=== PATIENT | female | born 1985 | race Caucasian/White ===

== ENCOUNTER 2017-10-31 12:45 | Emergency (ER) | payer OTHER ==
[~2017-10-31] VITALS: Ht 162.6 cm; Wt 86.2 kg
[2017-10-31] MEDS ORDERED: ADDERALL 5 MG TA5 M1 PO (12:50)
[2017-10-31] MEDS ORDERED: CELEXA40 MG PO (12:50)
[2017-10-31 13:09] LABS: ABSOLUTE BASOPHILS 0.1 thou/uL (0.0-0.2); ABSOLUTE EOSINOPHILS 0.1 thou/uL (0.0-0.7); ABSOLUTE LYMPHOCYTES 2.1 thou/uL (0.8-5.3); ABSOLUTE MONOCYTES 0.4 thou/uL (0.0-1.2); ABSOLUTE NEUTROPHILS 3.1 thou/uL (1.6-8.1); BASOPHILS 2.5 %; EOSINOPHILS 1.7 %; HEMATOCRIT 39.4 % (37.0-47.0); HEMOGLOBIN 13.5 gm/dL (12.0-15.0); MCH 31.8 pg (26.0-34.0); MCHC 34.2 g/dL (28.0-37.0); MONOCYTES 6.7 %; MPV 8.3 fl. (7.2-11.1); NUCLEATED RBCS 0 /100WBC; PLATELET COUNT* 262 thou/uL (150-400); POLYS 53.1 %; RBC 4.23 mil/uL (4.20-5.00); RDW-CV 11.8 % (10.5-14.5); WBC 5.8 thou/uL (4.0-11.0)
[2017-10-31 13:16] LABS: ANION GAP 7 mmol/L (7-16); BUN 8 mg/dL (7-18); CALCIUM 8.4 mg/dL (8.5-10.1); CHLORIDE 105 mmol/L (98-107); CO2 28 mmol/L (21-32); CREATININE 0.8 mg/dL (0.6-1.3); GLUCOSE 96 mg/dL (70-99); POTASSIUM 3.8 mmol/L (3.5-5.1); SODIUM 140 mmol/L (136-145)
[2017-10-31 13:19] LABS: APTT 25.9 Seconds (25.0-31.3); PROTIME 10.2 Seconds (9.20-11.50)
[2017-10-31 13:34] LABS: ALBUMIN 3.3 g/dL (3.4-5.0); ALKALINE PHOSPHATASE 68 U/L (46-116); CK-MB MASS < 0.5 ng/mL (<0.5-3.6); LIPASE 144 U/L (73-393); MAGNESIUM 1.8 mg/dL (1.8-2.4); NT-PRO BRAIN NAT PEPTIDE 65 pg/mL (<300); SGOT 21 U/L (15-37); SGPT 37 U/L (30-65); TOTAL BILIRUBIN 0.3 mg/dL (<0.1-1.0); TOTAL PROTEIN 6.6 g/dL (6.4-8.2); TROPONIN-I LEVEL <0.06 ng/mL (<0.06)
[2017-10-31 14:26] VITALS: BP 114/77
--- NOTE | 2017-11-01 18:03 | EKG ---
[place] [address] ELECTROCARDIOGRAM REPORT Name: RACHELLE MORAN Room: [facility]#: [id number] Admission: 10/31/17 Attend Phys: Discharge: 10/31/17 Date of : 87 Report #: [id number] THIS REPORT FOR: //name// [facility] ED Test Date: 2017-10-31 Test Time: 13:04:27 Pat Name: RACHELLE MORAN Department: Room: Gender: F Household Cook: CHAPINCITO : 1985 Requested By: Matthew Castro Order Number: [id number] MD: Brenton Tinoco Measurements Intervals [place] Rate: 89 P: 70 NV: 137 QRS: 90 QRSD: 105 T: 52 QT: 379 QTc: 462 Interpretive Statements Sinus rhythm Borderline right axis deviation Low voltage, extremity and precordial leads Baseline wander in lead(s) I,III,aVL No previous ECG available for comparison Electronically Signed On 11-01-2017 18:03:02 CDT by Brenton Tinoco [email or web address] <ELECTRONICALLY SIGNED> By: Brenton Tinoco MD, [facility] 11/01/17 1803 1304 130 Brenton Tinoco MD, [facility] /EPI
--- NOTE | 2017-11-01 18:03 | EKG ---
[place] [address] ELECTROCARDIOGRAM REPORT Name: RACHELLE MORAN Room: [facility]#: [id number] Admission: 10/31/17 Attend Phys: Discharge: 10/31/17 Date of : 87 Report #: [id number] THIS REPORT FOR: //name// [facility] ED Test Date: 2017-10-31 Test Time: 12:51:04 Pat Name: RACHELLE MORAN Department: Room: Gender: F Homoeopath: KORINA : 1985 Requested By: Matthew Castro Order Number: [id number] MD: Brenton Tinoco Measurements Intervals [place] Rate: 73 P: 41 IN: 136 QRS: 98 QRSD: 92 T: 74 QT: 382 QTc: 421 Interpretive Statements Sinus rhythm Borderline right axis deviation Low voltage, precordial leads Nonspecific T abnormalities, lateral leads Baseline wander in lead(s) I,II,III,aVR,aVL No previous ECG available for comparison Electronically Signed On 11-01-2017 18:02:54 CDT by Brenton Tinoco [email or web address] <ELECTRONICALLY SIGNED> By: Brenton Tinoco MD, [facility] 11/01/17 1802 1251 1251 Brenton Tinoco MD, [facility] /EPI
== END 2017-10-31 14:29 | disposition home or self-care (01) ==
LOC: M.ERS 12:45
PROVIDERS: Family Medicine
DX: R07.9 Chest pain, unspecified (principal); F32.9 Major depressive disorder, single episode, unspecified; F41.9 Anxiety disorder, unspecified

== ENCOUNTER 2017-11-25 22:52 | Emergency (ER) | payer OTHER ==
[~2017-11-25] VITALS: Ht 165.1 cm; Wt 85.7 kg
[~2017-11-25 22:52] MED LIST: ADDERALL 5 MG TA5 M1 PO; CELEXA40 MG PO
[2017-11-25] MEDS ORDERED: CLONAZEPAM 0.50.5 M1 (23:03)
[2017-11-25] MEDS ORDERED: KLONOPIN0.5 MG PO (23:39)
[2017-11-25 23:48] VITALS: BP 118/76
== END 2017-11-25 23:48 | disposition home or self-care (01) ==
LOC: M.ERS 22:52
DX: F41.0 Panic disorder [episodic paroxysmal anxiety] (principal); F32.9 Major depressive disorder, single episode, unspecified; F17.200 Nicotine dependence, unspecified, uncomplicated

== ENCOUNTER 2018-01-08 17:36 | Emergency (ER) | payer OTHER ==
[~2018-01-08] VITALS: Ht 165.1 cm; Wt 81.7 kg
[~2018-01-08 17:36] MED LIST changes: +CLONAZEPAM 0.50.5 M1; +KLONOPIN0.5 MG PO
[2018-01-08 17:58] LABS: URINE BILIRUBIN NEGATIVE (Negative); URINE BLOOD NEGATIVE (Negative); URINE CLARITY CLEAR; URINE COLOR YELLOW; URINE GLUCOSE-RANDOM NEGATIVE (Negative); URINE KETONES NEGATIVE (Negative); URINE LEUKOCYTES-REFLEX NEGATIVE (Negative); URINE NITRITE-REFLEX NEGATIVE (Negative); URINE PROTEIN NEGATIVE (Negative); URINE SPECIFIC GRAVITY 1.015 (1.005-1.030)
[2018-01-08 18:06] LABS: AMP/METHAMP Negative (Negative); BARBITURATES Negative (Negative); BENZODIAZEPINES POSITIVE (Negative); COCAINE Negative (Negative); METHADONE Negative (Negative); OPIATES Negative (Negative); PCP Negative (Negative); THC POSITIVE (Negative)
[2018-01-08 18:06] LABS: ABSOLUTE BASOPHILS 0.1 thou/uL (0.0-0.2); ABSOLUTE EOSINOPHILS 0.4 thou/uL (0.0-0.7); ABSOLUTE LYMPHOCYTES 3.3 thou/uL (0.8-5.3); ABSOLUTE MONOCYTES 0.4 thou/uL (0.0-1.2); ABSOLUTE NEUTROPHILS 4.6 thou/uL (1.6-8.1); BASOPHILS 0.9 %; EOSINOPHILS 4.6 %; HEMATOCRIT 40.6 % (37.0-47.0); HEMOGLOBIN 13.9 gm/dL (12.0-15.0); LYMPHOCYTES 37.3 %; MCH 31.8 pg (26.0-34.0); MCHC 34.2 g/dL (28.0-37.0); MCV 93.1 fL (80.0-100.0); MONOCYTES 4.6 %; MPV 8.1 fl. (7.2-11.1); NUCLEATED RBCS 0 /100WBC; PLATELET COUNT* 261 thou/uL (150-400); POLYS 52.6 %; RBC 4.36 mil/uL (4.20-5.00); RDW-CV 12.5 % (10.5-14.5); WBC 8.8 thou/uL (4.0-11.0)
[2018-01-08 18:14] LABS: CALCIUM 8.7 mg/dL (8.5-10.1); CREATININE 0.9 mg/dL (0.6-1.3); POTASSIUM 3.6 mmol/L (3.5-5.1)
[2018-01-08 18:18] LABS: ALBUMIN 3.6 g/dL (3.4-5.0); TOTAL BILIRUBIN 0.4 mg/dL (<0.1-1.0)
[2018-01-08] MEDS ORDERED: HYDROCODONE-AP1 EAC6 PO (19:04)
[2018-01-08] MEDS ORDERED: BENTYL 10 MG CA10 M1 PO (19:05)
[2018-01-08 19:19] VITALS: BP 129/78
== END 2018-01-08 19:20 | disposition home or self-care (01) ==
LOC: M.ERS 17:36
PROVIDERS: Physician Assistant
DX: N76.0 Acute vaginitis (principal); B96.89 Other specified bacterial agents as the cause of diseases classified elsewhere; R10.9 Unspecified abdominal pain; F32.9 Major depressive disorder, single episode, unspecified; F41.9 Anxiety disorder, unspecified

== ENCOUNTER 2018-07-19 18:51 | Emergency (ER) | payer OTHER ==
[~2018-07-19] VITALS: Ht 165.1 cm; Wt 86.2 kg
[~2018-07-19 18:51] MED LIST changes: +BENTYL 10 MG CA10 M1 PO; +HYDROCODONE-AP1 EAC6 PO
[2018-07-19] MEDS ORDERED: UCERIS9 MG PO (19:09)
[2018-07-19] MEDS ORDERED: CIPRO500 M1 PO (19:09)
[2018-07-19 19:17] LABS: URINE BILIRUBIN NEGATIVE (Negative); URINE BLOOD 1+ (Negative); URINE CLARITY CLEAR; URINE COLOR YELLOW; URINE GLUCOSE-RANDOM NEGATIVE (Negative); URINE KETONES NEGATIVE (Negative); URINE LEUKOCYTES-REFLEX NEGATIVE (Negative); URINE NITRITE-REFLEX NEGATIVE (Negative); URINE PROTEIN NEGATIVE (Negative); URINE SPECIFIC GRAVITY <= 1.005 (1.005-1.030); URINE UROBILINOGEN 0.2 E.U./dl (0.2-1.0)
[2018-07-19 19:21] LABS: ABSOLUTE BASOPHILS 0.1 thou/uL (0.0-0.2); ABSOLUTE EOSINOPHILS 0.1 thou/uL (0.0-0.7); ABSOLUTE MONOCYTES 0.6 thou/uL (0.0-1.2); EOSINOPHILS 0.9 %; HEMATOCRIT 40.5 % (37.0-47.0); HEMOGLOBIN 13.7 gm/dL (12.0-15.0); LYMPHOCYTES 25.4 %; MCH 32.2 pg (26.0-34.0); MCHC 33.8 g/dL (28.0-37.0); MCV 95.3 fL (80.0-100.0); MONOCYTES 5.1 %; MPV 7.8 fl. (7.2-11.1); NUCLEATED RBCS 0 /100WBC; PLATELET COUNT* 269 thou/uL (150-400); POLYS 67.6 %; RBC 4.25 mil/uL (4.20-5.00); RDW-CV 12.3 % (10.5-14.5); WBC 11.9 thou/uL (4.0-11.0)
[2018-07-19 19:25] LABS: CASTS None Seen /LPF (None Seen); CRYSTALS None Seen /LPF (None Seen); MUCUS 0-3 Light strn/LPF (None Seen); SQUAMOUS 4-10 Moderate /LPF (0-3); URINE RBC 0-2 Rare /HPF (0-2); WBC CLUMPS Few (None Seen)
[2018-07-19 19:28] LABS: CALCIUM 8.4 mg/dL (8.5-10.1); CREATININE 1.2 mg/dL (0.6-1.3); POTASSIUM 3.2 mmol/L (3.5-5.1)
[2018-07-19 19:33] LABS: ALBUMIN 3.4 g/dL (3.4-5.0); TOTAL BILIRUBIN 0.2 mg/dL (<0.1-1.0); TOTAL PROTEIN 6.8 g/dL (6.4-8.2)
[2018-07-19] MEDS ORDERED: ZOFRAN ODT4 MG PO (20:45)
[2018-07-19] MEDS ORDERED: IBU600 MG PO (20:49)
[2018-07-19] MEDS ORDERED: NORCO 5-325 TA1 EAC1 PO (20:49)
[2018-07-19 22:20] VITALS: BP 121/69
[2018-07-20] MEDS ORDERED: PROBIOTIC1 EAC1 PO (17:48)
== END 2018-07-19 22:20 | disposition home or self-care (01) ==
LOC: M.ERS 18:51
PROVIDERS: Nurse Practitioner Family
DX: N12 Tubulo-interstitial nephritis, not specified as acute or chronic (principal); F41.9 Anxiety disorder, unspecified; F32.9 Major depressive disorder, single episode, unspecified

== ENCOUNTER 2018-07-20 14:44 | Inpatient (IN) | payer OTHER ==
[~2018-07-20] VITALS: Ht 165.1 cm; Wt 86.2 kg
[~2018-07-20 14:44] MED LIST changes: +CIPRO500 M1 PO; +IBU600 MG PO; +NORCO 5-325 TA1 EAC1 PO; +UCERIS9 MG PO; +ZOFRAN ODT4 MG PO
[2018-07-20 14:57] VITALS: BP 164/94
[2018-07-20 15:36] LABS: HEMATOCRIT 39.7 % (37.0-47.0); HEMOGLOBIN 13.5 gm/dL (12.0-15.0); MCH 32.5 pg (26.0-34.0); MCHC 33.9 g/dL (28.0-37.0); MCV 95.7 fL (80.0-100.0); MPV 8.4 fl. (7.2-11.1); NUCLEATED RBCS 0 /100WBC; PLATELET COUNT* 276 thou/uL (150-400); RBC 4.15 mil/uL (4.20-5.00); RDW-CV 12.3 % (10.5-14.5); WBC 10.1 thou/uL (4.0-11.0)
[2018-07-20 15:45] LABS: CALCIUM 8.4 mg/dL (8.5-10.1); POTASSIUM 3.4 mmol/L (3.5-5.1)
[2018-07-20 15:49] LABS: ALBUMIN 3.3 g/dL (3.4-5.0); TOTAL BILIRUBIN 0.3 mg/dL (<0.1-1.0); TOTAL PROTEIN 6.8 g/dL (6.4-8.2)
[2018-07-20 15:52] LABS: URINE BILIRUBIN NEGATIVE (Negative); URINE BLOOD NEGATIVE (Negative); URINE CLARITY CLEAR; URINE COLOR YELLOW; URINE GLUCOSE-RANDOM NEGATIVE (Negative); URINE KETONES NEGATIVE (Negative); URINE NITRITE-REFLEX NEGATIVE (Negative); URINE PROTEIN NEGATIVE (Negative); URINE UROBILINOGEN 0.2 E.U./dl (0.2-1.0)
[2018-07-20 15:54] LABS: URINE LEUKOCYTES-REFLEX 2+ (Negative)
[2018-07-20 16:01] LABS: ABSOLUTE LYMPHOCYTES 2.2 thou/uL (0.8-5.3); ABSOLUTE MONOCYTES 0.2 thou/uL (0.0-1.2); ABSOLUTE NEUTROPHILS 7.7 thou/uL (1.6-8.1); PLATELET ESTIMATE ADEQUATE
[2018-07-20 16:10] LABS: SQUAMOUS 4-10 Moderate /LPF (0-3); URINE WBC-REFLEX 0-5 Rare /HPF (0-5)
[2018-07-20 16:11] LABS: BACTERIA-REFLEX 1-9 Few /HPF (None Seen); CASTS None Seen /LPF (None Seen); CRYSTALS None Seen /LPF (None Seen); URINE RBC 0-2 Rare /HPF (0-2)
[2018-07-20 16:33] VITALS: BP 142/92
[2018-07-20] MEDS ORDERED: PROBIOTIC1 EAC1 PO (17:48)
[2018-07-20 18:21] LABS: AMP/METHAMP Negative (Negative); BARBITURATES Negative (Negative); BENZODIAZEPINES Negative (Negative); COCAINE Negative (Negative); METHADONE Negative (Negative); OPIATES POSITIVE (Negative); PCP Negative (Negative); THC Negative (Negative)
[2018-07-20 20:10] VITALS: BP 152/90
[2018-07-21] VITALS: BP 100/52
[2018-07-21 04:00] VITALS: BP 131/70
[2018-07-21 07:43] VITALS: BP 121/70
[2018-07-21 15:46] LABS: ABSOLUTE EOSINOPHILS 0.1 thou/uL (0.0-0.7); ABSOLUTE LYMPHOCYTES 2.7 thou/uL (0.8-5.3); ABSOLUTE MONOCYTES 0.3 thou/uL (0.0-1.2); ABSOLUTE NEUTROPHILS 3.4 thou/uL (1.6-8.1); BASOPHILS 0.2 %; EOSINOPHILS 1.6 %; HEMATOCRIT 34.9 % (37.0-47.0); HEMOGLOBIN 11.7 gm/dL (12.0-15.0); LYMPHOCYTES 40.6 %; MCH 32.4 pg (26.0-34.0); MCHC 33.6 g/dL (28.0-37.0); MCV 96.3 fL (80.0-100.0); MONOCYTES 4.9 %; MPV 8.6 fl. (7.2-11.1); NUCLEATED RBCS 0 /100WBC; PLATELET COUNT* 229 thou/uL (150-400); POLYS 52.7 %; RBC 3.62 mil/uL (4.20-5.00); RDW-CV 12.4 % (10.5-14.5); WBC 6.5 thou/uL (4.0-11.0)
[2018-07-21 15:47] VITALS: BP 109/69
[2018-07-21 16:01] LABS: CALCIUM 8.4 mg/dL (8.5-10.1); CREATININE 0.8 mg/dL (0.6-1.3); POTASSIUM 3.5 mmol/L (3.5-5.1)
[2018-07-21 20:30] VITALS: BP 138/85
[2018-07-22 01:30] VITALS: BP 128/70
--- NOTE | 2018-07-22 07:53 | CON ---
[address] [address] CONSULTATION Name: RACHELLE MORAN Room: [address] [facility]#: [id number] Admission: 07/20/18 Attend Phys: Moira Major MD Discharge: Date of : 87 Report #: [id number] THIS REPORT FOR: //name// CC: FAM physician/PCP Moira Major DATE OF SERVICE: 07/21/2018 ATTENDING PHYSICIAN: Dr. Major. REASON FOR EVALUATION: Pyelonephritis. HISTORY OF PRESENT ILLNESS: Chart reviewed, the patient examined. This is a 33-year-old woman without significant medical history, does have some anxiety, depression, apparently had developed a diarrheal illness, was confirmed to have C. diff positive PCR in her stool in 12/2017, had a fairly extended course of what appears to be oral vancomycin. 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 She subsequently developed a furuncle in the left inguinal area. This was cultured. She was told it was staphylococcus, although I have been unable to confirm that. She was started on ciprofloxacin, developed some nausea, emesis. She was evaluated initially as an outpatient then in the Emergency Room, was discharged only to be reevaluated 24 hours later, which was yesterday and was confirmed to have marked pyuria. CT imaging is consistent with pyelonephritis. She was empirically started on combination therapy with Cipro as well as ceftriaxone. She has not had recent diarrhea, it is more described as constipation. She is not encephalopathic. Does admit to bilateral lower quadrant as well as flank pains, although that has improved since admission. Denies any pulmonary related complaints. ALLERGIES: None known. MEDICATIONS: Include nicotine patch, citalopram, ondansetron, enoxaparin, ceftriaxone, clozapine, ciprofloxacin. PAST MEDICAL HISTORY: Above noted anxiety, depression, colitis, history of C. diff, tubal ligation. SOCIAL HISTORY: Smokes a pack a day, occasional ethanol, no illicit drug use. FAMILY HISTORY: Noncontributory. REVIEW OF SYSTEMS: Otherwise, unremarkable 10-point review of systems with exception of the above. PHYSICAL EXAMINATION: GENERAL: She is pleasant, alert, cooperative, appears to [place] [address] CONSULTATION Name: RACHELLE MORAN Room: [address] [place] [facility]#: [id number] Admission: 07/20/18 Attend Phys: Moira Major MD Discharge: Date of : 87 Report #: [id number] She is actually reasonably well nourished. VITAL SIGNS: Temperature 97.9, pulse 73, respirations 16, blood pressure is 121/70. SKIN: Warm, dry, no rashes. HEENT: Otherwise, unremarkable. Extraocular muscles intact. No oral lesions. NECK: Supple. LUNGS: Clear to auscultation. HEART: Regular. I do not appreciate any murmur. ABDOMEN: Soft, nontender, nondistended. There are no peritoneal signs. Really, no CVA tenderness. Left groin has an area of resolving inflammation, is mild at this point. There is no fluctuance, no evidence of a subcutaneous inflammatory mass. GENITOURINARY: Deferred. RECTAL: Deferred. LABORATORY DATA: Blood cultures sterile thus far. Drug screen was positive for opiates. Urinalysis, 16-25 white cells, few wbc's clumps, 10-30 bacteria. CBC: White count of 11.9, H and H 13.7 and 40.5, platelets of 269. CT abdomen and pelvis showed perinephric inflammation bilaterally, no findings of ureteral prominence or obstruction. No adenopathy. Electrolytes: Sodium 141, potassium 3.4, chloride 105, bicarbonate is 25, anion gap 11, BUN and creatinine 7 and 1.0, glucose of 114. Albumin of 3.3, total protein 6.8. LFTs unremarkable. Estimated GFR of 64. CBC: White count of 10.1, H and H 13.5 and 39.7, platelets of 276. ASSESSMENT: Pyelonephritis. Continue empiric antimicrobial therapy. Await culture results. At this point, she is not overtly toxic, although she is ill appearing with recent Clostridium difficile. We will add some oral vancomycin. We will obtain culture results from previous and see how she does clinically in the next 48-72 hours. It is not clear exactly what the colitis diagnosis is. She is on corticosteroids tapering dose, which may increase her risk for infectious complications. <ELECTRONICALLY SIGNED> By: Zach Dela Cruz MD 07/22/18 0753 1522 1926Zach Dela Cruz MD /rachele
[2018-07-22 08:48] VITALS: BP 125/73
[2018-07-22 10:59] LABS: HEMATOCRIT 33.2 % (37.0-47.0); HEMOGLOBIN 11.3 gm/dL (12.0-15.0); MCH 32.7 pg (26.0-34.0); MCHC 33.9 g/dL (28.0-37.0); MCV 96.4 fL (80.0-100.0); MPV 8.2 fl. (7.2-11.1); RBC 3.44 mil/uL (4.20-5.00); RDW-CV 12.1 % (10.5-14.5); WBC 7.6 thou/uL (4.0-11.0)
[2018-07-22 11:13] LABS: CALCIUM 8.4 mg/dL (8.5-10.1); CREATININE 0.8 mg/dL (0.6-1.3); POTASSIUM 3.6 mmol/L (3.5-5.1)
[2018-07-22 16:30] VITALS: BP 132/88
[2018-07-22 21:10] VITALS: BP 128/72
[2018-07-23 04:24] LABS: HEMATOCRIT 32.6 % (37.0-47.0); HEMOGLOBIN 11.2 gm/dL (12.0-15.0); MCHC 34.4 g/dL (28.0-37.0); MCV 95.7 fL (80.0-100.0); MPV 8.4 fl. (7.2-11.1); RBC 3.41 mil/uL (4.20-5.00); RDW-CV 12.1 % (10.5-14.5); WBC 7.4 thou/uL (4.0-11.0)
[2018-07-23 04:30] LABS: CALCIUM 7.9 mg/dL (8.5-10.1); CREATININE 0.8 mg/dL (0.6-1.3); POTASSIUM 3.5 mmol/L (3.5-5.1)
[2018-07-23 09:15] VITALS: BP 136/80
[2018-07-23] MEDS ORDERED: CEFDINIR300 MG PO (11:06)
[2018-07-23 11:07] VITALS: BP 128/72
[2018-07-23 13:50] VITALS: BP 128/72
== END 2018-07-23 11:25 | disposition home or self-care (01) | DRG 690 ==
LOC: M.ERS 14:44 → M.ORTHSURG 15:04 → M.TBA-ER 15:04 → M.ORTHSURG 16:04
PROVIDERS: Nurse Practitioner Family; ADMIT Family Medicine
DX: N10 Acute pyelonephritis (principal); F41.9 Anxiety disorder, unspecified; F32.9 Major depressive disorder, single episode, unspecified; F17.210 Nicotine dependence, cigarettes, uncomplicated; K52.839 Microscopic colitis, unspecified; N17.9 Acute kidney failure, unspecified; N18.9 Chronic kidney disease, unspecified; Z83.3 Family history of diabetes mellitus; Z79.899 Other long term (current) drug therapy

== ENCOUNTER 2018-08-10 18:55 | Emergency (ER) | payer OTHER ==
[~2018-08-10] VITALS: Ht 165.1 cm; Wt 86.2 kg
[~2018-08-10 18:55] MED LIST changes: +CEFDINIR300 MG PO; +PROBIOTIC1 EAC1 PO
[2018-08-10 19:25] LABS: HEMATOCRIT 39.8 % (37.0-47.0); HEMOGLOBIN 13.6 gm/dL (12.0-15.0); MCH 32.6 pg (26.0-34.0); MCHC 34.2 g/dL (28.0-37.0); MCV 95.3 fL (80.0-100.0); MPV 8.4 fl. (7.2-11.1); NUCLEATED RBCS 0 /100WBC; PLATELET COUNT* 281 thou/uL (150-400); RBC 4.18 mil/uL (4.20-5.00); WBC 8.6 thou/uL (4.0-11.0)
[2018-08-10 19:33] LABS: CALCIUM 8.7 mg/dL (8.5-10.1); CREATININE 0.9 mg/dL (0.6-1.3); POTASSIUM 3.6 mmol/L (3.5-5.1)
[2018-08-10 19:37] LABS: ALBUMIN 3.6 g/dL (3.4-5.0); TOTAL BILIRUBIN 0.2 mg/dL (<0.1-1.0); TOTAL PROTEIN 7.1 g/dL (6.4-8.2)
[2018-08-10 19:43] LABS: ABSOLUTE EOSINOPHILS 0.3 thou/uL (0.0-0.7); ABSOLUTE LYMPHOCYTES 2.3 thou/uL (0.8-5.3); ABSOLUTE MONOCYTES 0.3 thou/uL (0.0-1.2); ABSOLUTE NEUTROPHILS 5.7 thou/uL (1.6-8.1); PLATELET ESTIMATE ADEQUATE
[2018-08-10 19:55] LABS: URINE BILIRUBIN NEGATIVE (Negative); URINE BLOOD 1+ (Negative); URINE CLARITY CLEAR; URINE COLOR YELLOW; URINE GLUCOSE-RANDOM NEGATIVE (Negative); URINE KETONES NEGATIVE (Negative); URINE LEUKOCYTES-REFLEX NEGATIVE (Negative); URINE NITRITE-REFLEX NEGATIVE (Negative); URINE PROTEIN NEGATIVE (Negative); URINE UROBILINOGEN 0.2 E.U./dl (0.2-1.0)
[2018-08-10 20:08] LABS: BACTERIA-REFLEX 1-9 Few /HPF (None Seen); CASTS None Seen /LPF (None Seen); CRYSTALS None Seen /LPF (None Seen); SQUAMOUS 0-3 Few /LPF (0-3); URINE RBC None Seen /HPF (0-2); URINE WBC-REFLEX 0-5 Rare /HPF (0-5)
[2018-08-10] MEDS ORDERED: PHENAZOPYRIDIN200 M2 PO (21:01)
[2018-08-10] MEDS ORDERED: BACTRIM DS TAB1 EACH PO (21:01)
[2018-08-10] MEDS ORDERED: PHENERGAN 25 MG25 M1 PO (21:01)
[2018-08-10 21:13] VITALS: BP 120/63
== END 2018-08-10 21:13 | disposition home or self-care (01) ==
LOC: M.ERS 18:55
PROVIDERS: Physician Assistant
DX: R35.0 Frequency of micturition (principal); R19.7 Diarrhea, unspecified; I70.90 Unspecified atherosclerosis; F41.9 Anxiety disorder, unspecified; F32.9 Major depressive disorder, single episode, unspecified

== ENCOUNTER 2018-09-04 20:20 | Emergency (ER) | payer OTHER ==
[~2018-09-04] VITALS: Ht 165.1 cm; Wt 86.2 kg
[~2018-09-04 20:20] MED LIST changes: +BACTRIM DS TAB1 EACH PO; +PHENAZOPYRIDIN200 M2 PO; +PHENERGAN 25 MG25 M1 PO
[2018-09-04] MEDS ORDERED: ABILIFY MYCITE5 MG PO (20:28)
[2018-09-04] MEDS ORDERED: XANAX 0.5 MG0.5 M1 PO (20:28)
[2018-09-04 21:01] LABS: ABSOLUTE BASOPHILS 0.1 thou/uL (0.0-0.2); ABSOLUTE EOSINOPHILS 0.1 thou/uL (0.0-0.7); ABSOLUTE LYMPHOCYTES 2.6 thou/uL (0.8-5.3); ABSOLUTE MONOCYTES 0.3 thou/uL (0.0-1.2); ABSOLUTE NEUTROPHILS 3.8 thou/uL (1.6-8.1); BASOPHILS 1.4 %; EOSINOPHILS 1.4 %; HEMATOCRIT 37.5 % (37.0-47.0); LYMPHOCYTES 38.3 %; MCHC 34.8 g/dL (28.0-37.0); MCV 94.9 fL (80.0-100.0); MONOCYTES 3.9 %; MPV 7.7 fl. (7.2-11.1); NUCLEATED RBCS 0 /100WBC; PLATELET COUNT* 273 thou/uL (150-400); RBC 3.95 mil/uL (4.20-5.00); RDW-CV 12.2 % (10.5-14.5); WBC 6.9 thou/uL (4.0-11.0)
[2018-09-04 21:40] LABS: ANION GAP 10 mmol/L (7-16); BUN 7 mg/dL (7-18); CALCIUM 8.8 mg/dL (8.5-10.1); CHLORIDE 103 mmol/L (98-107); CO2 26 mmol/L (21-32); CREATININE 0.8 mg/dL (0.6-1.3); GLUCOSE 95 mg/dL (70-99); POTASSIUM 3.4 mmol/L (3.5-5.1); SODIUM 139 mmol/L (136-145)
[2018-09-04 21:46] LABS: URINE BILIRUBIN NEGATIVE (Negative); URINE BLOOD NEGATIVE (Negative); URINE CLARITY CLEAR; URINE COLOR YELLOW; URINE GLUCOSE-RANDOM NEGATIVE (Negative); URINE KETONES NEGATIVE (Negative); URINE NITRITE-REFLEX NEGATIVE (Negative); URINE PROTEIN NEGATIVE (Negative); URINE UROBILINOGEN 0.2 E.U./dl (0.2-1.0)
[2018-09-04 21:47] LABS: ALBUMIN 3.4 g/dL (3.4-5.0); ALKALINE PHOSPHATASE 77 U/L (46-116); LIPASE 150 U/L (73-393); SGOT 14 U/L (15-37); SGPT 23 U/L (30-65); TOTAL BILIRUBIN 0.2 mg/dL (<0.1-1.0); TROPONIN-I LEVEL <0.06 ng/mL (<0.06)
[2018-09-04 21:47] LABS: URINE LEUKOCYTES-REFLEX 2+ (Negative)
[2018-09-04 21:55] LABS: AMP/METHAMP Negative (Negative); BARBITURATES Negative (Negative); BENZODIAZEPINES Negative (Negative); COCAINE Negative (Negative); METHADONE Negative (Negative); OPIATES Negative (Negative); PCP Negative (Negative); THC Negative (Negative)
[2018-09-04 22:01] LABS: BACTERIA-REFLEX >30 Many /HPF (None Seen); CASTS None Seen /LPF (None Seen); CRYSTALS None Seen /LPF (None Seen); MUCUS 4-6 Moderate strn/LPF (None Seen); SQUAMOUS 0-3 Few /LPF (0-3); URINE RBC 3-10 Few /HPF (0-2); URINE WBC-REFLEX >25 Many /HPF (0-5); WBC CLUMPS Few (None Seen)
[2018-09-04] MEDS ORDERED: NABUMETONE 750750 M1 PO (22:10)
[2018-09-04] MEDS ORDERED: MEDROLDOSEPACK PO (22:10)
[2018-09-04] MEDS ORDERED: TRAMADOL 50 MG50 MG PO (22:10)
[2018-09-04 22:15] LABS: INFLUENZA A ANTIGEN None Detected (None Detect); INFLUENZA B ANTIGEN None Detected (None Detect)
[2018-09-04] MEDS ORDERED: VENTOLIN HFA 1818 GM INH (22:23)
[2018-09-04 22:42] VITALS: BP 148/88
--- NOTE | 2018-09-05 15:35 | EKG ---
[place] [address] ELECTROCARDIOGRAM REPORT Name: DEANRACHELLE Wall Room: [facility]#: [id number] Admission: 09/04/18 Attend Phys: Discharge: 09/04/18 Date of : 87 Report #: [id number] THIS REPORT FOR: //name// [facility] ED Test Date: 2018-09-04 Test Time: 20:28:06 Pat Name: RACHELLE MORAN Department: Room: Gender: F Cisco Network Architect: Wander NINO : 1985 Requested By: Karishma Johnson Order Number: [id number] MD: Brenton Tinoco Measurements Intervals [place] Rate: 114 P: 54 MD: 146 QRS: 94 QRSD: 91 T: 6 QT: 348 QTc: 480 Interpretive Statements Sinus tachycardia Borderline right axis deviation Low voltage, precordial leads Borderline prolonged QT interval Compared to ECG 10/31/2017 13:04:27 Sinus rate has increased Electronically Signed On 09-05-2018 15:34:47 BPM ANALYST by Brenton Tinoco [email or web address] <ELECTRONICALLY SIGNED> By: Brenton Tinoco MD, [facility] 09/05/18 1534 27 27 Brenton Tinoco MD, [facility] /EPI
== END 2018-09-04 22:43 | disposition home or self-care (01) ==
LOC: M.ERS 20:20
PROVIDERS: Nurse Practitioner Family
DX: J20.9 Acute bronchitis, unspecified (principal); M25.512 Pain in left shoulder; F41.9 Anxiety disorder, unspecified; F32.9 Major depressive disorder, single episode, unspecified

== ENCOUNTER 2018-09-25 23:56 | Emergency (ER) | payer OTHER ==
[~2018-09-25] VITALS: Ht 165.1 cm; Wt 86.2 kg
[~2018-09-25 23:56] MED LIST changes: +ABILIFY MYCITE5 MG PO; +MEDROLDOSEPACK PO; +NABUMETONE 750750 M1 PO; +TRAMADOL 50 MG50 MG PO; +VENTOLIN HFA 1818 GM INH; +XANAX 0.5 MG0.5 M1 PO
[2018-09-26 00:47] LABS: ABSOLUTE EOSINOPHILS 0.1 thou/uL (0.0-0.7); ABSOLUTE LYMPHOCYTES 2.7 thou/uL (0.8-5.3); ABSOLUTE MONOCYTES 0.5 thou/uL (0.0-1.2); ABSOLUTE NEUTROPHILS 4.1 thou/uL (1.6-8.1); BASOPHILS 0.6 %; EOSINOPHILS 1.6 %; HEMATOCRIT 39.6 % (37.0-47.0); HEMOGLOBIN 13.7 gm/dL (12.0-15.0); LYMPHOCYTES 35.8 %; MCH 33.2 pg (26.0-34.0); MCHC 34.5 g/dL (28.0-37.0); MONOCYTES 6.2 %; MPV 7.9 fl. (7.2-11.1); NUCLEATED RBCS 0 /100WBC; PLATELET COUNT* 296 thou/uL (150-400); POLYS 55.8 %; RBC 4.13 mil/uL (4.20-5.00); RDW-CV 11.9 % (10.5-14.5); WBC 7.4 thou/uL (4.0-11.0)
[2018-09-26 00:52] LABS: CALCIUM 8.9 mg/dL (8.5-10.1); CREATININE 0.9 mg/dL (0.6-1.3); POTASSIUM 3.4 mmol/L (3.5-5.1)
[2018-09-26 00:56] LABS: ALBUMIN 3.7 g/dL (3.4-5.0); TOTAL BILIRUBIN 0.3 mg/dL (<0.1-1.0)
[2018-09-26] MEDS ORDERED: CIPROFLOXACIN500 M1 PO (00:57)
[2018-09-26] MEDS ORDERED: ZOFRAN ODT4 MG PO (00:57)
[2018-09-26 01:12] LABS: URINE BILIRUBIN NEGATIVE (Negative); URINE BLOOD TRACE (Negative); URINE CLARITY CLEAR; URINE COLOR YELLOW; URINE GLUCOSE-RANDOM NEGATIVE (Negative); URINE KETONES NEGATIVE (Negative); URINE NITRITE-REFLEX NEGATIVE (Negative); URINE PROTEIN NEGATIVE (Negative); URINE SPECIFIC GRAVITY 1.015 (1.005-1.030); URINE UROBILINOGEN 0.2 E.U./dl (0.2-1.0)
[2018-09-26 01:15] LABS: URINE LEUKOCYTES-REFLEX 3+ (Negative)
[2018-09-26 01:45] LABS: MUCUS 0-3 Light strn/LPF (None Seen); SQUAMOUS >10 Many /LPF (0-3)
[2018-09-26 01:46] LABS: CASTS None Seen /LPF (None Seen)
[2018-09-26 01:48] LABS: URINE RBC 3-10 Few /HPF (0-2); URINE WBC-REFLEX >25 Many /HPF (0-5)
[2018-09-26 01:49] LABS: BACTERIA-REFLEX >30 Many /HPF (None Seen); CRYSTALS None Seen /LPF (None Seen)
[2018-09-26] MEDS ORDERED: FLAGYL500 M1 PO (03:06)
[2018-09-26 03:25] VITALS: BP 95/51
== END 2018-09-26 03:20 | disposition home or self-care (01) ==
LOC: M.ERS 23:56
PROVIDERS: Emergency Medicine
DX: R11.2 Nausea with vomiting, unspecified (principal); R10.13 Epigastric pain; R19.7 Diarrhea, unspecified; F41.9 Anxiety disorder, unspecified; F32.9 Major depressive disorder, single episode, unspecified; I25.10 Atherosclerotic heart disease of native coronary artery without angina pectoris; Z98.890 Other specified postprocedural states

== ENCOUNTER 2018-10-01 19:13 | Emergency (ER) | payer OTHER ==
[~2018-10-01] VITALS: Ht 165.1 cm; Wt 83.9 kg
[~2018-10-01 19:13] MED LIST changes: +CIPROFLOXACIN500 M1 PO; +FLAGYL500 M1 PO
[2018-10-01] MEDS ORDERED: CIPRO500 MG (19:26)
[2018-10-01] MEDS ORDERED: SAXENDA3 MG/0.5 M (19:26)
[2018-10-01 19:34] LABS: URINE BILIRUBIN NEGATIVE (Negative); URINE BLOOD NEGATIVE (Negative); URINE CLARITY CLEAR; URINE COLOR YELLOW; URINE GLUCOSE-RANDOM NEGATIVE (Negative); URINE KETONES NEGATIVE (Negative); URINE LEUKOCYTES-REFLEX NEGATIVE (Negative); URINE NITRITE-REFLEX NEGATIVE (Negative); URINE PROTEIN NEGATIVE (Negative); URINE SPECIFIC GRAVITY 1.015 (1.005-1.030); URINE UROBILINOGEN 0.2 E.U./dl (0.2-1.0)
[2018-10-01 19:46] LABS: ABSOLUTE BASOPHILS 0.1 thou/uL (0.0-0.2); ABSOLUTE EOSINOPHILS 0.1 thou/uL (0.0-0.7); ABSOLUTE LYMPHOCYTES 2.2 thou/uL (0.8-5.3); ABSOLUTE MONOCYTES 0.5 thou/uL (0.0-1.2); ABSOLUTE NEUTROPHILS 5.2 thou/uL (1.6-8.1); BASOPHILS 1.4 %; EOSINOPHILS 0.9 %; HEMATOCRIT 40.4 % (37.0-47.0); MCH 32.9 pg (26.0-34.0); MCHC 34.6 g/dL (28.0-37.0); MCV 95.2 fL (80.0-100.0); MONOCYTES 6.4 %; MPV 8.3 fl. (7.2-11.1); NUCLEATED RBCS 0 /100WBC; PLATELET COUNT* 274 thou/uL (150-400); POLYS 64.3 %; RBC 4.25 mil/uL (4.20-5.00); RDW-CV 11.8 % (10.5-14.5); WBC 8.1 thou/uL (4.0-11.0)
[2018-10-01 19:54] LABS: CALCIUM 8.9 mg/dL (8.5-10.1)
[2018-10-01 19:59] LABS: ALBUMIN 3.6 g/dL (3.4-5.0); TOTAL BILIRUBIN 0.3 mg/dL (<0.1-1.0); TOTAL PROTEIN 7.2 g/dL (6.4-8.2)
[2018-10-01 20:34] LABS: AMP/METHAMP POSITIVE (Negative); BARBITURATES Negative (Negative); BENZODIAZEPINES Negative (Negative); COCAINE Negative (Negative); METHADONE Negative (Negative); OPIATES Negative (Negative); PCP Negative (Negative); THC POSITIVE (Negative)
[2018-10-01] MEDS ORDERED: HYDROCODON-ACE1 EAC7 PO (20:57)
[2018-10-01] MEDS ORDERED: PHENERGAN 25 MG25 M1 PO (20:57)
[2018-10-01 21:13] VITALS: BP 111/77
== END 2018-10-01 21:13 | disposition home or self-care (01) ==
LOC: M.ERS 19:13
PROVIDERS: Personal Emergency Response Attendant
DX: M54.5 Low back pain (principal); F41.9 Anxiety disorder, unspecified; F32.9 Major depressive disorder, single episode, unspecified; I25.10 Atherosclerotic heart disease of native coronary artery without angina pectoris; F17.200 Nicotine dependence, unspecified, uncomplicated

== ENCOUNTER 2018-10-08 22:17 | Emergency (ER) | payer OTHER ==
[~2018-10-08] VITALS: Ht 165.1 cm; Wt 83.0 kg
[~2018-10-08 22:17] MED LIST changes: +CIPRO500 MG; +HYDROCODON-ACE1 EAC7 PO; +SAXENDA3 MG/0.5 M
[2018-10-08 22:49] LABS: MCH 32.8 pg (26.0-34.0); NUCLEATED RBCS 0 /100WBC; WBC 7.9 thou/uL (4.0-11.0)
[2018-10-08 22:51] LABS: ABSOLUTE BASOPHILS 0.1 thou/uL (0.0-0.2); ABSOLUTE EOSINOPHILS 0.1 thou/uL (0.0-0.7); ABSOLUTE LYMPHOCYTES 3.1 thou/uL (0.8-5.3); ABSOLUTE MONOCYTES 0.3 thou/uL (0.0-1.2); ABSOLUTE NEUTROPHILS 4.3 thou/uL (1.6-8.1); BASOPHILS 1.1 %; EOSINOPHILS 1.8 %; HEMATOCRIT 40.4 % (37.0-47.0); HEMOGLOBIN 13.8 gm/dL (12.0-15.0); LYMPHOCYTES 38.8 %; MCHC 34.1 g/dL (28.0-37.0); MCV 96.1 fL (80.0-100.0); MONOCYTES 3.9 %; MPV 8.5 fl. (7.2-11.1); PLATELET COUNT* 280 thou/uL (150-400); POLYS 54.4 %; RBC 4.21 mil/uL (4.20-5.00); RDW-CV 12.1 % (10.5-14.5)
[2018-10-08 22:51] LABS: URINE BILIRUBIN NEGATIVE (Negative); URINE BLOOD NEGATIVE (Negative); URINE CLARITY CLEAR; URINE COLOR YELLOW; URINE GLUCOSE-RANDOM NEGATIVE (Negative); URINE KETONES NEGATIVE (Negative); URINE LEUKOCYTES-REFLEX NEGATIVE (Negative); URINE NITRITE-REFLEX NEGATIVE (Negative); URINE PROTEIN NEGATIVE (Negative); URINE SPECIFIC GRAVITY 1.025 (1.005-1.030); URINE UROBILINOGEN 0.2 E.U./dl (0.2-1.0)
[2018-10-08 22:57] LABS: CALCIUM 8.7 mg/dL (8.5-10.1); CREATININE 0.9 mg/dL (0.6-1.3); POTASSIUM 3.2 mmol/L (3.5-5.1)
[2018-10-08 23:01] LABS: ALBUMIN 3.8 g/dL (3.4-5.0); TOTAL BILIRUBIN 0.3 mg/dL (<0.1-1.0); TOTAL PROTEIN 7.5 g/dL (6.4-8.2)
[2018-10-09 00:15] VITALS: BP 108/61
== END 2018-10-09 00:15 | disposition home or self-care (01) ==
LOC: M.ERS 22:17
PROVIDERS: Family Medicine
DX: K59.00 Constipation, unspecified (principal); R11.2 Nausea with vomiting, unspecified; F41.9 Anxiety disorder, unspecified; F32.9 Major depressive disorder, single episode, unspecified; I25.10 Atherosclerotic heart disease of native coronary artery without angina pectoris

== ENCOUNTER 2018-10-21 11:55 | Emergency (ER) | payer OTHER ==
[~2018-10-21] VITALS: Ht 165.1 cm; Wt 82.6 kg
[2018-10-21] MEDS ORDERED: UCERIS9 MG PO (12:17)
[2018-10-21 12:42] LABS: URINE BILIRUBIN NEGATIVE (Negative); URINE BLOOD NEGATIVE (Negative); URINE CLARITY CLEAR; URINE COLOR YELLOW; URINE GLUCOSE-RANDOM NEGATIVE (Negative); URINE KETONES NEGATIVE (Negative); URINE LEUKOCYTES-REFLEX NEGATIVE (Negative); URINE NITRITE-REFLEX NEGATIVE (Negative); URINE PROTEIN NEGATIVE (Negative); URINE UROBILINOGEN 0.2 E.U./dl (0.2-1.0)
[2018-10-21 12:43] LABS: ABSOLUTE BASOPHILS 0.1 thou/uL (0.0-0.2); ABSOLUTE EOSINOPHILS 0.2 thou/uL (0.0-0.7); ABSOLUTE MONOCYTES 0.5 thou/uL (0.0-1.2); ABSOLUTE NEUTROPHILS 4.9 thou/uL (1.6-8.1); BASOPHILS 1.4 %; EOSINOPHILS 1.8 %; HEMATOCRIT 41.6 % (37.0-47.0); HEMOGLOBIN 14.1 gm/dL (12.0-15.0); LYMPHOCYTES 34.4 %; MCH 32.3 pg (26.0-34.0); MCHC 33.9 g/dL (28.0-37.0); MCV 95.2 fL (80.0-100.0); MPV 8.1 fl. (7.2-11.1); NUCLEATED RBCS 0 /100WBC; PLATELET COUNT* 288 thou/uL (150-400); POLYS 56.4 %; RBC 4.37 mil/uL (4.20-5.00); RDW-CV 11.9 % (10.5-14.5); WBC 8.6 thou/uL (4.0-11.0)
[2018-10-21 12:55] LABS: ALBUMIN 3.6 g/dL (3.4-5.0); CALCIUM 8.6 mg/dL (8.5-10.1); CREATININE 0.9 mg/dL (0.6-1.3); POTASSIUM 3.3 mmol/L (3.5-5.1); TOTAL BILIRUBIN 0.1 mg/dL (<0.1-1.0); TOTAL PROTEIN 7.1 g/dL (6.4-8.2)
[2018-10-21] MEDS ORDERED: BENTYL 20 MG TA20 M1 PO (13:40)
[2018-10-21 14:22] VITALS: BP 93/56
== END 2018-10-21 14:23 | disposition home or self-care (01) ==
LOC: M.ERS 11:55
PROVIDERS: Nurse Practitioner Family
DX: K52.9 Noninfective gastroenteritis and colitis, unspecified (principal); F17.200 Nicotine dependence, unspecified, uncomplicated; F41.9 Anxiety disorder, unspecified; F32.9 Major depressive disorder, single episode, unspecified; I25.10 Atherosclerotic heart disease of native coronary artery without angina pectoris

== ENCOUNTER 2018-11-11 22:21 | Emergency (ER) | payer OTHER ==
[~2018-11-11] VITALS: Ht 165.1 cm; Wt 81.7 kg
[~2018-11-11 22:21] MED LIST changes: +BENTYL 20 MG TA20 M1 PO
[2018-11-11 23:09] LABS: URINE BLOOD NEGATIVE (Negative); URINE CLARITY CLEAR; URINE COLOR YELLOW; URINE GLUCOSE-RANDOM NEGATIVE (Negative); URINE KETONES TRACE (Negative); URINE LEUKOCYTES-REFLEX NEGATIVE (Negative); URINE NITRITE-REFLEX NEGATIVE (Negative); URINE PROTEIN TRACE (Negative); URINE SPECIFIC GRAVITY >= 1.030 (1.005-1.030)
[2018-11-11 23:10] LABS: URINE BILIRUBIN 1+ (Negative)
[2018-11-11 23:11] LABS: ABSOLUTE BASOPHILS 0.1 thou/uL (0.0-0.2); ABSOLUTE EOSINOPHILS 0.1 thou/uL (0.0-0.7); ABSOLUTE LYMPHOCYTES 2.7 thou/uL (0.8-5.3); ABSOLUTE MONOCYTES 0.5 thou/uL (0.0-1.2); ABSOLUTE NEUTROPHILS 4.8 thou/uL (1.6-8.1); BASOPHILS 1.1 %; EOSINOPHILS 0.6 %; HEMATOCRIT 40.6 % (37.0-47.0); HEMOGLOBIN 13.9 gm/dL (12.0-15.0); LYMPHOCYTES 33.3 %; MCH 32.4 pg (26.0-34.0); MCHC 34.3 g/dL (28.0-37.0); MCV 94.6 fL (80.0-100.0); MONOCYTES 6.1 %; MPV 8.2 fl. (7.2-11.1); NUCLEATED RBCS 0 /100WBC; PLATELET COUNT* 278 thou/uL (150-400); POLYS 58.9 %; RBC 4.29 mil/uL (4.20-5.00); RDW-CV 11.8 % (10.5-14.5); WBC 8.2 thou/uL (4.0-11.0)
[2018-11-11 23:12] LABS: ICTOTEST (BILI CONFIRMATORY) Negative (Negative)
[2018-11-11 23:37] LABS: ALBUMIN 3.5 g/dL (3.4-5.0); CALCIUM 8.9 mg/dL (8.5-10.1); CREATININE 0.9 mg/dL (0.6-1.3); POTASSIUM 3.8 mmol/L (3.5-5.1); TOTAL BILIRUBIN 0.3 mg/dL (<0.1-1.0); TOTAL PROTEIN 6.9 g/dL (6.4-8.2)
[2018-11-11] MEDS ORDERED: BENTYL 20 MG TA20 M1 PO (23:53)
[2018-11-11] MEDS ORDERED: ZOFRAN4 MG PO (23:53)
[2018-11-12 00:07] VITALS: BP 135/73
== END 2018-11-12 00:04 | disposition home or self-care (01) ==
LOC: M.ERS 22:21
PROVIDERS: Nurse Practitioner
DX: G43.D0 Abdominal migraine, not intractable (principal); R11.2 Nausea with vomiting, unspecified; F41.9 Anxiety disorder, unspecified; I25.10 Atherosclerotic heart disease of native coronary artery without angina pectoris; F32.9 Major depressive disorder, single episode, unspecified; Z98.890 Other specified postprocedural states

== ENCOUNTER 2018-12-29 17:04 | Emergency (ER) | payer OTHER ==
[~2018-12-29] VITALS: Ht 165.1 cm; Wt 83.9 kg
[~2018-12-29 17:04] MED LIST changes: +ZOFRAN4 MG PO
[2018-12-29] MEDS ORDERED: CYMBALTA60 MG PO (17:16)
[2018-12-29] MEDS ORDERED: VYVANSE60 M1 PO (17:16)
[2018-12-29 17:18] LABS: URINE BILIRUBIN NEGATIVE (Negative); URINE BLOOD TRACE (Negative); URINE CLARITY SL CLOUDY; URINE COLOR YELLOW; URINE GLUCOSE-RANDOM NEGATIVE (Negative); URINE KETONES NEGATIVE (Negative); URINE LEUKOCYTES-REFLEX 3+ (Negative); URINE NITRITE-REFLEX NEGATIVE (Negative); URINE PROTEIN NEGATIVE (Negative); URINE UROBILINOGEN 0.2 E.U./dl (0.2-1.0)
[2018-12-29 17:24] LABS: MUCUS None Seen strn/LPF (None Seen); SQUAMOUS >10 Many /LPF (0-3); URINE WBC-REFLEX >25 Many /HPF (0-5)
[2018-12-29 17:26] LABS: CASTS None Seen /LPF (None Seen); CRYSTALS None Seen /LPF (None Seen); URINE RBC 0-2 Rare /HPF (0-2)
[2018-12-29] MEDS ORDERED: KEFLEX500 M1 PO (17:32)
[2018-12-29] MEDS ORDERED: DIFLUCAN150 M1 PO (17:32)
[2018-12-29] MEDS ORDERED: PYRIDIUM100 M1 PO (17:33)
[2018-12-29 18:46] VITALS: BP 145/86
== END 2018-12-29 18:50 | disposition home or self-care (01) ==
LOC: M.ERS 17:04
PROVIDERS: Nurse Practitioner Family
DX: A59.9 Trichomoniasis, unspecified (principal); N39.0 Urinary tract infection, site not specified; F17.200 Nicotine dependence, unspecified, uncomplicated; F41.9 Anxiety disorder, unspecified; F32.9 Major depressive disorder, single episode, unspecified; I25.10 Atherosclerotic heart disease of native coronary artery without angina pectoris

== ENCOUNTER 2019-01-16 12:13 | Emergency (ER) | payer OTHER ==
[~2019-01-16] VITALS: Ht 165.1 cm; Wt 83.9 kg
[~2019-01-16 12:13] MED LIST changes: +CYMBALTA60 MG PO; +DIFLUCAN150 M1 PO; +KEFLEX500 M1 PO; +PYRIDIUM100 M1 PO; +VYVANSE60 M1 PO
[2019-01-16] MEDS ORDERED: AMOXICILLIN 50500 MG PO (12:23)
[2019-01-16 12:24] VITALS: BP 153/97
== END 2019-01-16 12:38 | disposition home or self-care (01) ==
LOC: M.ERS 12:13
DX: K02.9 Dental caries, unspecified (principal); F41.9 Anxiety disorder, unspecified; F32.9 Major depressive disorder, single episode, unspecified; I25.10 Atherosclerotic heart disease of native coronary artery without angina pectoris

== ENCOUNTER 2019-08-02 13:14 | Emergency (ER) | payer OTHER ==
[~2019-08-02] VITALS: Ht 165.1 cm; Wt 83.9 kg
[~2019-08-02 13:14] MED LIST changes: +AMOXICILLIN 50500 MG PO
[2019-08-02] MEDS ORDERED: XANAX 0.5 MG0.5 M1 PO (13:26)
[2019-08-02] MEDS ORDERED: ADDERALL 20 MG20 MG PO (13:26)
[2019-08-02 13:43] LABS: URINE BILIRUBIN NEGATIVE (Negative); URINE BLOOD NEGATIVE (Negative); URINE CLARITY CLEAR; URINE COLOR YELLOW; URINE GLUCOSE-RANDOM NEGATIVE (Negative); URINE KETONES NEGATIVE (Negative); URINE NITRITE-REFLEX NEGATIVE (Negative); URINE PROTEIN NEGATIVE (Negative); URINE SPECIFIC GRAVITY <= 1.005 (1.005-1.030); URINE UROBILINOGEN 0.2 E.U./dl (0.2-1.0)
[2019-08-02 13:49] LABS: URINE LEUKOCYTES-REFLEX 2+ (Negative)
[2019-08-02 13:53] LABS: SQUAMOUS 4-10 Moderate /LPF (0-3); URINE WBC-REFLEX 6-15 Few /HPF (0-5)
[2019-08-02 13:54] LABS: BACTERIA-REFLEX 1-9 Few /HPF (None Seen); CASTS None Seen /LPF (None Seen); CRYSTALS None Seen /LPF (None Seen); MUCUS 4-6 Moderate strn/LPF (None Seen); URINE RBC 0-2 Rare /HPF (0-2)
[2019-08-02 14:49] LABS: ABSOLUTE BASOPHILS 0.1 thou/uL (0.0-0.2); ABSOLUTE EOSINOPHILS 0.1 thou/uL (0.0-0.7); ABSOLUTE LYMPHOCYTES 2.8 thou/uL (0.8-5.3); ABSOLUTE MONOCYTES 0.4 thou/uL (0.0-1.2); ABSOLUTE NEUTROPHILS 4.4 thou/uL (1.6-8.1); EOSINOPHILS 1.1 %; HEMATOCRIT 40.7 % (37.0-47.0); HEMOGLOBIN 14.2 gm/dL (12.0-15.0); LYMPHOCYTES 36.1 %; MCH 32.6 pg (26.0-34.0); MCHC 34.8 g/dL (28.0-37.0); MCV 93.5 fL (80.0-100.0); MONOCYTES 4.7 %; MPV 8.2 fl. (7.2-11.1); NUCLEATED RBCS 0 /100WBC; PLATELET COUNT* 274 thou/uL (150-400); POLYS 57.1 %; RBC 4.35 mil/uL (4.20-5.00); RDW-CV 12.3 % (10.5-14.5); WBC 7.7 thou/uL (4.0-11.0)
[2019-08-02 14:53] LABS: CALCIUM 9.2 mg/dL (8.5-10.1); CREATININE 0.8 mg/dL (0.6-1.3); POTASSIUM 3.5 mmol/L (3.5-5.1)
[2019-08-02 14:58] LABS: ALBUMIN 3.7 g/dL (3.4-5.0); TOTAL BILIRUBIN 0.2 mg/dL (<0.1-1.0); TOTAL PROTEIN 7.5 g/dL (6.4-8.2)
[2019-08-02 15:21] LABS: AMP/METHAMP POSITIVE (Negative); BARBITURATES Negative (Negative); BENZODIAZEPINES Negative (Negative); COCAINE Negative (Negative); METHADONE Negative (Negative); OPIATES Negative (Negative); PCP Negative (Negative); THC Negative (Negative)
[2019-08-02] MEDS ORDERED: BUTALB-APAP-CA1 EACH PO (15:54)
[2019-08-02] MEDS ORDERED: KEFLEX500 M1 PO (15:54)
[2019-08-02] MEDS ORDERED: ROBAXIN 750 MG750 MG PO (15:58)
[2019-08-02 16:03] VITALS: BP 146/77
== END 2019-08-02 16:03 | disposition home or self-care (01) ==
LOC: M.ERS 13:14
PROVIDERS: Physician Assistant
DX: R51 Headache (principal); N39.0 Urinary tract infection, site not specified; F41.9 Anxiety disorder, unspecified; F32.9 Major depressive disorder, single episode, unspecified; I25.10 Atherosclerotic heart disease of native coronary artery without angina pectoris; F17.200 Nicotine dependence, unspecified, uncomplicated

== ENCOUNTER 2019-08-03 16:51 | Observation (INO) | payer OTHER ==
[~2019-08-03] VITALS: Ht 165.1 cm; Wt 86.2 kg
[~2019-08-03 16:51] MED LIST changes: +ADDERALL 20 MG20 MG PO; +BUTALB-APAP-CA1 EACH PO; +ROBAXIN 750 MG750 MG PO
[2019-08-03 17:22] VITALS: BP 161/102
[2019-08-03 18:31] LABS: URINE BILIRUBIN NEGATIVE (Negative); URINE BLOOD NEGATIVE (Negative); URINE CLARITY CLEAR; URINE COLOR YELLOW; URINE GLUCOSE-RANDOM NEGATIVE (Negative); URINE KETONES NEGATIVE (Negative); URINE LEUKOCYTES-REFLEX NEGATIVE (Negative); URINE NITRITE-REFLEX NEGATIVE (Negative); URINE PROTEIN NEGATIVE (Negative); URINE SPECIFIC GRAVITY >= 1.030 (1.005-1.030); URINE UROBILINOGEN 0.2 E.U./dl (0.2-1.0)
[2019-08-03 18:34] LABS: ABSOLUTE BASOPHILS 0.1 thou/uL (0.0-0.2); ABSOLUTE EOSINOPHILS 0.1 thou/uL (0.0-0.7); ABSOLUTE LYMPHOCYTES 4.3 thou/uL (0.8-5.3); ABSOLUTE MONOCYTES 0.7 thou/uL (0.0-1.2); ABSOLUTE NEUTROPHILS 9.1 thou/uL (1.6-8.1); BASOPHILS 0.4 %; EOSINOPHILS 0.5 %; HEMOGLOBIN 13.1 gm/dL (12.0-15.0); LYMPHOCYTES 30.1 %; MCH 32.3 pg (26.0-34.0); MCHC 34.6 g/dL (28.0-37.0); MCV 93.3 fL (80.0-100.0); MONOCYTES 5.2 %; MPV 8.3 fl. (7.2-11.1); NUCLEATED RBCS 0 /100WBC; PLATELET COUNT* 297 thou/uL (150-400); POLYS 63.8 %; RBC 4.07 mil/uL (4.20-5.00); RDW-CV 12.3 % (10.5-14.5); WBC 14.3 thou/uL (4.0-11.0)
[2019-08-03 18:43] LABS: CALCIUM 8.4 mg/dL (8.5-10.1); CREATININE 0.9 mg/dL (0.6-1.3); POTASSIUM 3.4 mmol/L (3.5-5.1)
[2019-08-03 18:45] LABS: INFLUENZA A ANTIGEN Negative (Negative); INFLUENZA B ANTIGEN Negative (Negative)
[2019-08-03 18:48] LABS: ALBUMIN 3.4 g/dL (3.4-5.0); TOTAL BILIRUBIN 0.1 mg/dL (<0.1-1.0); TOTAL PROTEIN 6.9 g/dL (6.4-8.2)
[2019-08-03 22:30] VITALS: BP 118/67
[2019-08-03 22:50] VITALS: BP 106/50
[2019-08-04 00:07] VITALS: BP 106/59
--- NOTE | 2019-08-04 01:32 | NUR ---
PT ADMITTED TO ROOM 112 AT 2250. PT REPORTS FALLING AT HOME AND HITING FOREHEAD. PT ALSO REPORTS SEEKING TREATMENT AT ED FOR ABDOMINAL PAIN FOR RECURRENT COLITIS. PT ORIENTED TO CALL LIGHT, BED CONTROLS AND ROOM. PT INSTRUCTED TO CALL BEFORE GETTING UP. CALL LIGHT IN REACH, PT DEMONSTRATES PROPER USE.
--- NOTE | 2019-08-04 06:23 | NUR ---
PT GIVEN PRN FENTANYL AND ZOFRAN FOR THROBBING HEADACHE. PT REPORTS HAVING THIS HEADACHE SINCE FALL YESTERDAY. NO VISUAL DISTURBACE, DIZZYNESS, VERTIGO, NAUSEA OR VOMITING.
--- NOTE | 2019-08-04 06:28 | NUR ---
PAGED DOCTOR REAL ESTATE LISTING CONSULTANT REGARDING PT'S HEADACHE.
--- NOTE | 2019-08-04 06:36 | NUR ---
RECIEVED CALL BACK DROM DR CONRAD. INFORMED PHYSICAN OF PT'S THROBBING HEADACHE RELATED TO FALL YESTERDAY. RECIEVED ORDERS FOR PRN FIORACET AND COMPAZINE.
[2019-08-04 08:39] VITALS: BP 105/79
--- NOTE | 2019-08-04 12:07 | NUR ---
LAYING IN BED. HAD BEEN UP WALKING INDEPENDENTLY IN [place]. SHE SAID SHE CAME TO THE ER TWICE YESTERDAY FOR A HEADACHE.
--- NOTE | 2019-08-04 12:13 | NUR ---
PT.RESTING IN BED. SEEN EARLIER WALKING INDEPENDENTLY IN THE [place]. SHE SAID HER MAIN PROBLEM IS HER HEADACHE BUT IT IS BETTER. SHE MIGHT GO HOME LATER TODAY. SHE WAS INTERESTED IN FINDING OUT THE RESULTS OF HER CT SCAN. SHE LIVES WITH HER AND CHILDREN. AGES 14,13 AND 7. SHE SHOULD HAVE NO DISCHARGE NEEDS.
--- NOTE | 2019-08-04 15:11 | NUR ---
PT HAS SLEPT TODAY AND NOW REQUESTS TO BE ABLE TO GO HOME AND FOLLOW UP WITH GI OUTPT.PT DENIES FURTHER PAIN OR HEADACHE. HAS RETURNED CALL AND PLANS TO DISCHARGE PT TO HOME.
[2019-08-04 15:16] VITALS: BP 105/79
== END 2019-08-04 16:12 | disposition home or self-care (01) ==
LOC: M.ERS 16:51 → M.ORTHSURG 20:49 → M.TBA-ER 20:49 → M.ORTHSURG 22:46
PROVIDERS: Nurse Practitioner Family; ADMIT Family Medicine
DX: K52.832 Lymphocytic colitis (principal); R51 Headache; F41.9 Anxiety disorder, unspecified; F32.9 Major depressive disorder, single episode, unspecified; F17.210 Nicotine dependence, cigarettes, uncomplicated; R50.9 Fever, unspecified; I25.10 Atherosclerotic heart disease of native coronary artery without angina pectoris; D72.829 Elevated white blood cell count, unspecified; Z79.899 Other long term (current) drug therapy

== ENCOUNTER 2019-10-13 21:06 | Emergency (ER) | payer OTHER ==
[~2019-10-13] VITALS: Ht 165.1 cm; Wt 83.9 kg
[2019-10-13 21:15] VITALS: BP 176/96
[2019-10-13] MEDS ORDERED: NICOTINE TRANSD21 M1 (21:20)
[2019-10-13] MEDS ORDERED: CHANTIX0.5 MG PO (21:20)
[2019-10-13 21:36] LABS: INFLUENZA A ANTIGEN Negative (Negative); INFLUENZA B ANTIGEN Negative (Negative)
[2019-10-13] MEDS ORDERED: AMOXICILLIN875 MG PO (22:02)
[2019-10-13] MEDS ORDERED: HYDROCODONE-ACE15 ML PO (22:02)
== END 2019-10-13 22:11 | disposition home or self-care (01) ==
LOC: M.ERS 21:06
PROVIDERS: Emergency Medicine
DX: J02.0 Streptococcal pharyngitis (principal); F41.9 Anxiety disorder, unspecified; F32.9 Major depressive disorder, single episode, unspecified; F17.290 Nicotine dependence, other tobacco product, uncomplicated

== ENCOUNTER 2020-04-06 01:58 | Emergency (ER) | payer OTHER ==
[~2020-04-06] VITALS: Ht 165.1 cm; Wt 83.9 kg
[~2020-04-06 01:58] MED LIST changes: +AMOXICILLIN875 MG PO; +CHANTIX0.5 MG PO; +HYDROCODONE-ACE15 ML PO; +NICOTINE TRANSD21 M1
[2020-04-06 02:22] LABS: URINE BILIRUBIN NEGATIVE (Negative); URINE BLOOD NEGATIVE (Negative); URINE CLARITY CLEAR; URINE COLOR YELLOW; URINE GLUCOSE-RANDOM NEGATIVE (Negative); URINE KETONES NEGATIVE (Negative); URINE LEUKOCYTES-REFLEX NEGATIVE (Negative); URINE NITRITE-REFLEX NEGATIVE (Negative); URINE PROTEIN NEGATIVE (Negative); URINE SPECIFIC GRAVITY <= 1.005 (1.005-1.030); URINE UROBILINOGEN 0.2 E.U./dl (0.2-1.0)
[2020-04-06] MEDS ORDERED: BACTRIM DS TAB1 EAC1 PO (02:30)
[2020-04-06] MEDS ORDERED: FLAGYL500 M1 PO (02:42)
[2020-04-06 02:50] VITALS: BP 164/93
== END 2020-04-06 02:51 | disposition home or self-care (01) ==
LOC: M.ERS 01:58
PROVIDERS: Emergency Medicine Emergency Medical Services
DX: N76.0 Acute vaginitis (principal); B96.89 Other specified bacterial agents as the cause of diseases classified elsewhere; F41.9 Anxiety disorder, unspecified; F32.9 Major depressive disorder, single episode, unspecified; Z98.51 Tubal ligation status

== ENCOUNTER 2020-07-08 15:00 | Emergency (ER) | payer OTHER ==
[~2020-07-08] VITALS: Ht 165.1 cm; Wt 83.9 kg
[~2020-07-08 15:00] MED LIST changes: +BACTRIM DS TAB1 EAC1 PO
[2020-07-08] MEDS ORDERED: CELEXA 10 MG TA10 M1 PO (15:06)
[2020-07-08 15:38] LABS: ABSOLUTE BASOPHILS 0.1 thou/uL (0.0-0.2); ABSOLUTE EOSINOPHILS 0.2 thou/uL (0.0-0.7); ABSOLUTE LYMPHOCYTES 2.7 thou/uL (0.8-5.3); ABSOLUTE MONOCYTES 0.4 thou/uL (0.0-1.2); ABSOLUTE NEUTROPHILS 3.9 thou/uL (1.6-8.1); BASOPHILS 1.3 %; EOSINOPHILS 2.8 %; HEMATOCRIT 40.9 % (37.0-47.0); HEMOGLOBIN 13.8 gm/dL (12.0-15.0); LYMPHOCYTES 36.8 %; MCH 32.7 pg (26.0-34.0); MCHC 33.7 g/dL (28.0-37.0); MCV 96.9 fL (80.0-100.0); MONOCYTES 6.1 %; MPV 7.8 fl. (7.2-11.1); NUCLEATED RBCS 0 /100WBC; PLATELET COUNT* 263 thou/uL (150-400); RBC 4.22 mil/uL (4.20-5.00); RDW-CV 12.4 % (10.5-14.5); WBC 7.4 thou/uL (4.0-11.0)
[2020-07-08 15:51] LABS: CALCIUM 8.4 mg/dL (8.5-10.1); CREATININE 0.9 mg/dL (0.6-1.3); POTASSIUM 3.6 mmol/L (3.5-5.1)
[2020-07-08 15:55] LABS: ALBUMIN 3.4 g/dL (3.4-5.0); TOTAL BILIRUBIN 0.3 mg/dL (<0.1-1.0); TOTAL PROTEIN 6.9 g/dL (6.4-8.2)
[2020-07-08] MEDS ORDERED: VENTOLIN HFA 1818 GM INH (17:05)
[2020-07-08] MEDS ORDERED: TESSALON PERLE100 MG PO (17:06)
[2020-07-08] MEDS ORDERED: ZPAK PO (17:06)
[2020-07-08] MEDS ORDERED: PREDNISONE 20 M20 MG PO (17:06)
[2020-07-08 17:14] VITALS: BP 126/59
--- NOTE | 2020-07-08 17:20 | EKG ---
[place] [address] ELECTROCARDIOGRAM REPORT Name: RACHELLE MORAN Room: [facility]#: [id number] Admission: 07/08/20 Attend Phys: Discharge: 07/08/20 Date of : 87 Date of Service: 07/08/20 1521 Report #: [id number] THIS REPORT FOR: //name// [facility] ED Test Date: 2020-07-08 Test Time: 15:21:53 Pat Name: RACHELLE MORAN Department: Room: Gender: F Cargo Inspector: CCD : 1985 Requested By: Matthew Castro Order Number: [id number] MD: Ari Burgess Measurements Intervals [place] Rate: 100 P: 58 NJ: 133 QRS: 96 QRSD: 93 T: -6 QT: 363 QTc: 469 Interpretive Statements Sinus tachycardia Borderline right axis deviation Low voltage, precordial leads Borderline T abnormalities, anterior leads Borderline prolonged QT interval Compared to ECG 09/04/2018 20:28:06 T-wave abnormality now present Electronically Signed On 07-08-2020 17:19:57 SCIENCE FACULTY MEMBER by Ari Burgess [email or web address] <ELECTRONICALLY SIGNED> By: Ari Burgess MD, FACC 07/08/20 1719 1521 1521 Ari Burgess MD, FACC /EPI
== END 2020-07-08 17:15 | disposition home or self-care (01) ==
LOC: M.ERS 15:00
PROVIDERS: Nurse Practitioner Family
DX: R07.89 Other chest pain (principal); J98.8 Other specified respiratory disorders; Z20.828 Contact with and (suspected) exposure to other viral communicable diseases; I25.10 Atherosclerotic heart disease of native coronary artery without angina pectoris; Z98.51 Tubal ligation status

== ENCOUNTER 2021-03-22 19:37 | Emergency (ER) | payer OTHER ==
[~2021-03-22] VITALS: Ht 165.1 cm; Wt 83.9 kg
[~2021-03-22 19:37] MED LIST changes: +AUGMENTIN 875-1 EACH PO; +CELEXA 10 MG TA10 M1 PO; +PREDNISONE 20 M20 MG PO; +TESSALON PERLE100 MG PO; +ZPAK PO
[2021-03-22 21:28] VITALS: BP 145/70
== END 2021-03-22 21:29 | disposition home or self-care (01) ==
LOC: M.ERS 19:37
DX: S63.91XA Sprain of unspecified part of right wrist and hand, initial encounter (principal); M79.641 Pain in right hand; M20.011 Mallet finger of right finger(s); I25.10 Atherosclerotic heart disease of native coronary artery without angina pectoris; Z98.51 Tubal ligation status; W22.8XXA Striking against or struck by other objects, initial encounter; Y93.89 Activity, other specified; Y92.89 Other specified places as the place of occurrence of the external cause; Y99.8 Other external cause status

== ENCOUNTER 2021-04-17 14:39 | Emergency (ER) | payer OTHER ==
[~2021-04-17] VITALS: Ht 165.1 cm; Wt 83.9 kg
[2021-04-17] MEDS ORDERED: TESSALON PERLE100 MG PO (15:32)
[2021-04-17] MEDS ORDERED: APAP W/CODEINE1 TA2 PO (15:32)
[2021-04-17] MEDS ORDERED: PROMETHAZI6.25 MG/5 PO (15:32)
[2021-04-17 16:24] VITALS: BP 142/70
== END 2021-04-17 16:25 | disposition home or self-care (01) ==
LOC: M.ERS 14:39
DX: U07.1 COVID-19 (principal); F41.9 Anxiety disorder, unspecified; I25.10 Atherosclerotic heart disease of native coronary artery without angina pectoris; F32.9 Major depressive disorder, single episode, unspecified; F17.210 Nicotine dependence, cigarettes, uncomplicated; Z98.51 Tubal ligation status; Z79.899 Other long term (current) drug therapy

== ENCOUNTER 2021-06-28 22:02 | Emergency (ER) | payer OTHER ==
[~2021-06-28] VITALS: Ht 165.1 cm; Wt 83.9 kg
[~2021-06-28 22:02] MED LIST changes: +APAP W/CODEINE1 TA2 PO; +PROMETHAZI6.25 MG/5 PO
[2021-06-28] MEDS ORDERED: DOXYCYCLINE 10100 MG PO (23:52)
[2021-06-28] MEDS ORDERED: HYDROCODON-ACE1 EAC8 PO (23:52)
[2021-06-29 00:18] VITALS: BP 163/84
== END 2021-06-29 00:19 | disposition home or self-care (01) ==
LOC: M.ERS 22:02
DX: J06.9 Acute upper respiratory infection, unspecified (principal); Z20.822 Contact with and (suspected) exposure to COVID-19; N76.0 Acute vaginitis; F41.9 Anxiety disorder, unspecified; F32.9 Major depressive disorder, single episode, unspecified; Z98.51 Tubal ligation status; Z79.899 Other long term (current) drug therapy

== ENCOUNTER → 2021-09-08 | Outpatient (CLI) | payer OTHER ==
[~2021-09-08] MED LIST changes: +DOXYCYCLINE 10100 MG PO; +HYDROCODON-ACE1 EAC8 PO
== END ==
LOC: M.RAD 14:13
PROVIDERS: ATTEND Family Medicine
DX: Z12.31 Encounter for screening mammogram for malignant neoplasm of breast (principal)